=== PATIENT | male | born 1990 | race Caucasian/White ===

== ENCOUNTER 2017-11-29 14:12 | Emergency (ER) | payer OTHER | END 2017-11-29 14:32 | disposition home or self-care (01) | LOC: E/R 14:12 | DX: J02.0 Streptococcal pharyngitis (principal) | CPT/HCPCS: 99283 ==

== ENCOUNTER 2018-10-21 02:36 | Emergency (ER) | payer SELFPAY, OTHER | END 2018-10-21 06:34 | disposition left against medical advice (07) | LOC: FTE 02:36 | DX: Z53.21 Procedure and treatment not carried out due to patient leaving prior to being seen by health care provider (principal) | CPT/HCPCS: 93005 ==

== ENCOUNTER 2018-12-25 23:30 | Emergency (ER) | payer OTHER ==
[2018-12-26] MEDS ORDERED: FAMOTIDINE 20 MG INJ IV (00:48)
[2018-12-26] MEDS: LIDOCAINE/MYLANTA 40 ML BTL PO (00:55)
[2018-12-26] MEDS: FAMOTIDINE 20 MG TAB PO (00:55)
== END 2018-12-26 03:04 | disposition home or self-care (01) ==
LOC: E/R 23:30
DX: R10.13 Epigastric pain (principal)
CPT/HCPCS: 71046; 93005; 99284-25

== ENCOUNTER 2018-12-29 19:23 | Emergency (ER) | payer OTHER | END 2018-12-29 22:14 | disposition home or self-care (01) | LOC: FTE 19:23 | DX: R06.02 Shortness of breath (principal) | CPT/HCPCS: 71046; 93005; 99284-25 ==